=== PATIENT | male | born 1980 | race Caucasian/White ===

== ENCOUNTER 2017-01-20 07:04 | Emergency (ER) | payer OTHER ==
[~2017-01-20] VITALS: Ht 190.5 cm; Wt 111.1 kg
[~2017-01-20 07:04] MED LIST: AMOXICILLIN500 MG PO; CATAFLAM50 MG PO; CLARITIN10 MG PO; FLEXERIL5 MG PO; HYDROCODONE BIT1 T11 PO; IMITREX50 MG PO; MEDROL DOSEPAK4 MG PO; MOTRIN800 MG PO; NKHM; PENICILLIN VK500 MG PO; Peridex 473 ML473 ML PO; TOBRADEX 0.1%-0.5 ML OPH; TRAMADOL HCL50 MG PO; VOLTAREN50 M1 PO; WYMOX500 MG PO; ZITHROMAX Z PA250 MG PO
[2017-01-20] MEDS ORDERED: PREDNISONE50 MG PO (09:03)
== END 2017-01-20 09:11 | disposition home or self-care (01) ==
LOC: ED 07:04
DX: M79.671 Pain in right foot (principal)

== ENCOUNTER 2017-12-20 13:52 | Emergency (ER) | payer SELFPAY ==
[~2017-12-20] VITALS: Ht 190.5 cm; Wt 111.1 kg
[~2017-12-20 13:52] MED LIST changes: +PREDNISONE50 MG PO
[2017-12-20] MEDS ORDERED: AUGMENTIN 875875 MG PO (15:29)
== END 2017-12-20 15:36 | disposition home or self-care (01) ==
LOC: ED 13:52
DX: J02.9 Acute pharyngitis, unspecified (principal); Z98.890 Other specified postprocedural states; Z79.899 Other long term (current) drug therapy

== ENCOUNTER 2018-01-03 13:08 | Emergency (ER) | payer SELFPAY ==
[~2018-01-03] VITALS: Wt 111.1 kg
[~2018-01-03 13:08] MED LIST changes: +AUGMENTIN 875875 MG PO
[2018-01-03 13:47] LABS: BASO % 0.3 % (0.0-1.0); EOS # 0.1 10*3/uL (0.0-0.4); EOS % 0.7 % (1.0-4.0); HEMATOCRIT 41.3 % (42.0-52.0); HEMOGLOBIN 13.9 g/dl (14.0-18.0); LYMPH # 1.3 10*3/uL (1.3-4.4); LYMPH % 10.8 % (27.0-41.0); MEAN CELL VOLUME 88.4 fl (80.0-94.0); MEAN CORPUSCULAR HGB 29.8 pg (27.0-31.0); MEAN CORPUSCULAR HGB CONC 33.7 g/dl (33.0-37.0); MEAN PLATELET VOLUME 11.1 fl (9.6-12.3); MONO # 1.1 10*3/uL (0.1-1.0); MONO % 9.1 % (3.0-9.0); NEUT # 9.5 10*3/uL (2.3-7.9); NEUT % 78.8 % (47.0-73.0); PLATELET COUNT AUTOMATED 231 10*3/uL (130-400); RED BLOOD COUNT 4.67 10*6/uL (4.50-5.90); RED CELL DISTRI WIDTH 13.2 % (0-14.5)
[2018-01-03 14:01] LABS: ALBUMIN 3.5 gm/dl (3.1-4.5); ALKALINE PHOSPHATASE 104 U/L (45-117); BUN 13 mg/dl (7-24); CHLORIDE 105 mmol/L (98-107); POTASSIUM 4.1 mmol/L (3.5-5.1); SGPT/ALT 38 U/L (12-78); SODIUM 140 mmol/L (136-145); TOTAL PROTEIN 7.2 gm/dL (6.4-8.2)
[2018-01-03 14:14] LABS: SGOT/AST 23 IU/L (3-35)
[2018-01-03] MEDS ORDERED: CLINDAMYCIN HC300 MG PO ×2 (16:03→16:08)
[2018-01-03] MEDS ORDERED: DELTASONE20 M1 PO (16:08)
== END 2018-01-03 16:24 | disposition home or self-care (01) ==
LOC: ED 13:08
PROVIDERS: Physician Assistant
DX: J03.90 Acute tonsillitis, unspecified (principal); Z98.890 Other specified postprocedural states

== ENCOUNTER 2020-04-03 14:05 | Emergency (ER) | payer OTHER ==
[~2020-04-03] VITALS: Ht 190.5 cm; Wt 120.2 kg
[~2020-04-03 14:05] MED LIST changes: +CLINDAMYCIN HC300 MG PO; +CLINDAMYCIN150 MG PO; +DELTASONE20 M1 PO; +IBU800 MG PO
[2020-04-03] MEDS ORDERED: NAPROSYN500 MG PO (14:57)
[2020-04-03] MEDS ORDERED: CEPHALEXIN500 M1 PO (14:57)
== END 2020-04-03 14:56 | disposition home or self-care (01) ==
LOC: ED 14:05
DX: L73.9 Follicular disorder, unspecified (principal); Z79.899 Other long term (current) drug therapy

== ENCOUNTER 2020-07-27 11:41 | Emergency (ER) | payer OTHER ==
[~2020-07-27 11:41] MED LIST changes: +CEPHALEXIN500 M1 PO; +NAPROSYN500 MG PO
[2020-07-27] MEDS ORDERED: PREDNISONE20 M1 PO (12:20)
[2020-07-27] MEDS ORDERED: AUGMENTIN 875875 MG PO (12:20)
== END 2020-07-27 14:41 | disposition home or self-care (01) ==
LOC: ED 11:41
DX: J02.0 Streptococcal pharyngitis (principal); Z20.822 Contact with and (suspected) exposure to COVID-19; Z79.2 Long term (current) use of antibiotics; Z79.899 Other long term (current) drug therapy

== ENCOUNTER → 2021-02-17 | Outpatient (CLI) | payer OTHER ==
[~2021-02-17] MED LIST changes: +PREDNISONE20 M1 PO
== END | disposition home or self-care (01) ==
LOC: LAB 00:14 → COVID19 00:14
PROVIDERS: ATTEND Internal Medicine
DX: U07.1 COVID-19 (principal)